=== PATIENT | female | born 2000 | race Caucasian/White ===

== ENCOUNTER 2023-09-26 15:42 | Outpatient (CLI) | payer OTHER, SELFPAY ==
[2023-09-26 16:27] LABS: Beta HCG Quantitative < 2.39 mIU/ML
== END 2023-09-26 15:43 | disposition home or self-care (01) ==
LOC: ANHLAB 15:46
PROVIDERS: Visit Provider Obstetrics & Gynecology
DX: N91.2 Amenorrhea, unspecified (principal)
CPT/HCPCS: 36415; 84702

== ENCOUNTER 2024-12-22 15:41 | Emergency (ER) | payer OTHER, SELFPAY ==
[2024-12-22 15:52] VITALS: BP 110/61; PULSE 63; RESP 16; TEMP 37.2; O2SAT 100
--- NOTE | 2024-12-22 16:05 | ED_ITS ---
HPI - General Adult General Chief complaint: Extremity Problem,Nontraumatic Stated complaint: LUMP ON NECK & R WRIST PAIN Time Seen by Provider: 12/22/24 15:51 Source: patient and RN notes reviewed Mode of arrival: ambulatory Limitations: no limitations History of Present Illness HPI narrative: Patient presents today complaining of a lymph node to the right neck that waxes and wanes in size intermittently over the past 4 months. Denies pain, fever, recent illness, or any additional systemic symptoms. She is also complaining of right wrist pain. She woke up with wrist pain this morning that increases somewhat with movement. Denies numbness or tingling. No OTC treatment prior to arrival. Related Data Home Medications ?Medication ?Instructions ?Recorded ?Confirmed ?Last Taken ?Type No Home Medications 09/27/23 12/22/24 Unknown History Allergies Allergy/AdvReac Type Severity Reaction Status Date / Time No Known Allergies Allergy Verified 12/22/24 15:52 [facility] Past Medical History Medical History Encounter for insertion of ParaGard IUD Surgical History Surgical History History of gynecological procedure (09/27/23) paragard iud insertion Family History Family History Grandparent Diabetes mellitus maternal grandmother Breast cancer maternal grandmother Hypertension maternal grandfather Malignant lymphoma paternal grandmother Social History Social History Smoking status: Never smoker Second hand tobacco smoke exposure: No Alcohol intake: never Substance use: current Substance use type: marijuana Other substance usage details: daily Do You Feel Safe in your Home?: Yes Lack of Transportation: No Lack of Food: Never True Current Housing: I Have Housing Concerned About Future Housing: No Difficulty Paying Gas/Electric Bills: No Difficulty Paying for Meds: No Currently Unemployed: No Education: High School Diploma/GED Difficulty w/ Childcare or Family Care: No Living arrangements: other Additional living arrangements comments: Male in gender Occupation/Education: occupation Additional occupation/education comments: [employer] Gender identity (if verbalized by the patient): Female Sexual Orientation (if Verbalized by the Patient): Bisexual Comments At time of signature, I have reviewed and agree with nursing past medical, surgical, social and family history unless otherwise noted. Please see nursing chart for further information. There is no relevant family history pertinent to the presenting complaint Exam Narrative: GENERAL: Well-appearing, well-nourished, and in no acute distress. HEAD: Normocephalic, atraumatic. EYES: EOMI. No redness or drainage. Conjunctivae normal. ENT: Mucous membranes pink and moist. Nares clear. No rhinorrhea. TMs normal bilaterally. Throat normal. Uvula midline. NECK: Normal AROM. Supple. Palpable, soft, right tonsillar lymph node. Tender to palpation. No erythema or edema noted. CHEST: No respiratory distress. Clear to auscultation. HEART: Regular rate and rhythm. No murmur appreciated. EXTREMITIES: Right wrist: Mild soft tissue tenderness to the distal radius. No edema, erythema, ecchymosis. Discomfort with passive radial deviation, but no pain with the remainder of range of motion. Distal sensation intact. Ca pillary refill normal. Radial pulse normal. SKIN: Warm, dry, no rash. Capillary refill normal. Normal skin turgor. NEURO: No focal deficits. Alert and oriented x3. Gait steady. PSYCH: Normal affect. No signs of depression or anxiety. Course Course Level of Care: Express Care Visit Vital Signs Vital signs: Vital Signs Temperature 98.9 F 12/22/24 15:52 Pulse Rate 63 12/22/24 15:52 Respiratory Rate 16 12/22/24 15:52 Blood Pressure 110/61 12/22/24 15:52 Pulse Oximetry 100 12/22/24 15:52 Temperature 98.9 F 12/22/24 15:52 Pulse Rate 63 12/22/24 15:52 Respiratory Rate 16 12/22/24 15:52 Blood Pressure 110/61 12/22/24 15:52 Pulse Oximetry 100 12/22/24 15:52 Reviewed Medical Decision Making MDM Narrative Medical decision making narrative: 24-year-old otherwise healthy female patient presents today intermittently palpable right tonsil lymph node x4 months. Denies recent illness or pain, or any other systemic symptoms. Upon exam, lymph node is slightly palpable and tender, but no gross edema, erythema noted. Recommend PCP follow-up for further evaluation. Patient has no other systemic symptoms that would warrant emergent transfer to the ER. Vital signs stable. Patient also complains of right wrist pain that was present upon waking this morning with no history of injury or trauma. Likely slept wrong on the wrist or strained it. Recommend NSAIDs with orthopedic follow-up in 7-10 days if symptoms persist. Patient agrees with plans. Differential Diagnosis Differential Diagnosis: Wrist strain, tendinitis,lymphadenopathy Vital Signs Vital Signs: Vital Signs Temperature 98.9 F 12/22/24 15:52 Pulse Rate 63 12/22/24 15:52 Respiratory Rate 16 12/22/24 15:52 Blood Pressure 110/61 12/22/24 15:52 Pulse Oximetry 100 12/22/24 15:52 Temperature 98.9 F 12/22/24 15:52 Pulse Rate 63 12/22/24 15:52 Respiratory Rate 16 12/22/24 15:52 Blood Pressure 110/61 12/22/24 15:52 Pulse Oximetry 100 12/22/24 15:52 Critical Care Time Critical Care Time Critical Care Time: No Discharge Plan Discharge Clinical Impression: Palpable lymph node, Acute pain of right wrist Patient Disposition: Home Condition: Stable Instructions: Wrist Sprain (ED) Additional Instructions: Please follow-up with primary care for further evaluation of your lymph node. The [facility] physician liaison number is [phone]. Call and they can help you find a PCP that is taking new patients. Apply ice and taking anti-inflammatories such as Aleve or ibuprofen for your wrist pain. Follow-up with orthopedics in 1 week if symptoms persist. Patient Language: Citizen Of [place] Prescriptions: No Action No Home Medications Follow-up/Referrals: PHYSICIAN,SUGAR HOUSE SUPERVISOR [Primary Care Provider] - Dom Kwok MD [Physician] - Time of Disposition: 16:04
== END 2024-12-22 16:09 | disposition home or self-care (01) ==
PROVIDERS: Emergency Provider Nurse Practitioner
DX: R59.0 Localized enlarged lymph nodes (principal); M25.531 Pain in right wrist
CPT/HCPCS: 99212; G0463

== ENCOUNTER 2025-02-22 07:57 | Emergency (ER) | payer OTHER, SELFPAY ==
--- NOTE | ~2025-02-22 | CT_ITS ---
EXAMINATION: CT soft tissue neck w con COMPARISON: None HISTORY: subjective lump/mass inferior ear/upper neck TECHNIQUE: Axial images were obtained with IV contrast. Sagittal, coronal reconstruction images were obtained from the axial views. Omnipaque 370, [address] scan performed using dose optimization techniques including the following automated exposure control; adjustment of mA and/or kV; use of iterative reconstruction technique. Automatic exposure control was used to reduce radiation dose. Permanent radiation dose record is archived to PACS. FINDINGS: . Visualized brain parenchyma is unremarkable. Optic globes unremarkable. No thickening of the prevertebral space or asymmetry of the airway. No asymmetry of the base of the tongue on the aryepiglottic folds. No asymmetry of the vocal cords. No thyroid nodules. No lymphadenopathy anterior superior mediastinum. Esophagus unremarkable. Parapharyngeal spaces and tonsillar tissue unremarkable. Submandibular glands and parotid glands unremarkable. No jugulodigastric or posterior cervical lymphadenopathy. No supraclavicular lymphadenopathy. Lung apices are unremarkable. No sclerotic or lytic lesions. No significant sinusitis. The soft tissues appear unremarkable. IMPRESSION: 1. There is no CT correlate to the palpable finding. If symptoms persist outpatient contrast-enhanced MRI recommended Reviewed, dictated and finalized at location A. IMPRESSION: 1. There is no CT correlate to the palpable finding. If symptoms persist outpat ient contrast-enhanced MRI recommended
[2025-02-22 08:02] VITALS: BP 116/62; PULSE 65; RESP 18; TEMP 36.7; O2SAT 100
[2025-02-22 08:09] VITALS: O2SAT 100
[2025-02-22 08:11] VITALS: BP 115/71; PULSE 61; RESP 14; TEMP 36.7; O2SAT 100
--- NOTE | 2025-02-22 10:12 | ED_ITS ---
HPI - URI/Sore Throat General Chief Complaint: Upper Respiratory Infection Stated Complaint: lump side of neck Time Seen by Provider: 02/22/25 10:07 Source: patient Mode of arrival: ambulatory Limitations: no limitations History of Present Illness HPI Narrative: Patient presents with report of a lump on the side of her neck which she states has been present for approximately a year but she feels like it is increasing in size over the past 1-4 months. She denies any ear pain. She reports allergies year round when asked about itchy watery eyes. For the past 2 days she has had upper respiratory infection symptoms such as a cough and rhinorrhea. She is not on medications for allergies. She denies any sore throat. She reports mild difficulty swallowing but no pain with swallowing. She denies this area feeling itchy. She has not taken any medications at home for this. Patient denies having a primary care physician. She states she had an appointment to see a doctor on Monday but she did not go as she missed this appointment. She states it would take more than a month to get in to be seen by a new primary care physician and so presents today. No previous workup for this. Has not seen ENT. Related Data Allergies Allergy/AdvReac Type Severity Reaction Status Date / Time No Known Allergies Allergy Verified 02/22/25 08:02 [facility] Past Medical History Medical History Encounter for insertion of ParaGard IUD Surgical History Surgical History History of gynecological procedure (09/27/23) paragard iud insertion Family History Family History Grandparent Diabetes mellitus maternal grandmother Breast cancer maternal grandmother Hypertension maternal grandfather Malignant lymphoma paternal grandmother Social History Social History Smoking status: Never smoker Second hand tobacco smoke exposure: No Alcohol intake: never Substance use: current Substance use type: marijuana Other substance usage details: daily Do You Feel Safe in your Home?: Yes Lack of Transportation: No Lack of Food: Never True Current Housing: I Have Housing Concerned About Future Housing: No Difficulty Paying Gas/Electric Bills: No Difficulty Paying for Meds: No Currently Unemployed: No Education: High School Diploma/GED Difficulty w/ Childcare or Family Care: No Living arrangements: other Additional living arrangements comments: Male in gender Occupation/Education: occupation Additional occupation/education comments: [employer] Gender identity (if verbalized by the patient): Female Sexual Orientation (if Verbalized by the Patient): Bisexual Exam 2 Narrative: GENERAL: Well-appearing, well-nourished, and in no acute distress. HEAD: Normocephalic, atraumatic. EYES: Non injected, non icteric ENT: Nares clear, no rhinorrhea or epistaxis. Gross auditory acuity intact. No tenderness to palpation/manipulation of pinna. TM easily visualized without bulging/effusion. No vesicles. No perforation of the TM. No bulging of the ear. No tenderness to palpation at the mastoid. NECK: Supple. No meningismus. No marked adenopathy (occipital or cervical). No appreciable mass/lesion/lump in the area just inferior to base of R ear/proximal neck where patient points which is otherwise posterior/inferior to TMJ CHEST: Speaking in full sentences. No respiratory distress. HEART: Regular rate and rhythm. . ABDOMEN: Soft, nondistended. EXTREMITIES: Normal range of motion. No lower extremity edema. SKIN: Warm, dry, no rash. No overlying erythema/lesions. NEURO: No focal deficits. Alert and oriented. Answering questions. Following commands. Normal speech without aphasia or dysarthria. PSYCH: Normal mood and affect. Course Vital Signs Vital signs: Vital Signs Temperature 98.1 F 02/22/25 08:02 Pulse Rate 65 02/22/25 08:02 Respiratory Rate 18 02/22/25 08:02 Blood Pressure 116/62 02/22/25 08:02 Pulse Oximetry 100 02/22/25 08:02 Temperature 98.3 F 02/22/25 12:22 Pulse Rate 72 02/22/25 12:22 Respiratory Rate 18 02/22/25 12:22 Blood Pressure 127/73 02/22/25 12:22 Pulse Oximetry 98 02/22/25 12:22 Oxygen Delivery Room Air 02/22/25 08:09 MDM - URI/Sore Throat MDM Narrative Medical decision making narrative: Patient presents with report of a lump that she feels on the side of her neck just under/at the base of the ear. Has been going on for 1 year, subjectively worse for the past 1-4 months. In the emergency department they are afebrile with vital signs within normal limits. No palpable mass on my physical exam. Viral swab negative. CBC unremarkable. BMP normal. Normal ESR and CRP. test negative. CT imaging negative. Discharged with Rx for OTC anagesic medication, 3 day course of Afrin for nasal congestion, and supply of allergy medication. Advised follow up with PCP. Otherwise stable for DC. Differential Diagnosis Differential diagnosis: Likely upper respiratory infection, otitis media, viral infection and other (mastoiditis; allergies; Eustachian tube dysfunction/inflammation; lymphadenopathy) Lab Data 02/22/25 10:39 02/22/25 10:39 Labs: Lab Results 02/22/25 02/22/25 Range/Units 09:13 10:39 WBC 8.0 (4.5-10.0) K/mm3 RBC 4.97 (4.2-5.4) M/mm3 Hgb 14.4 (12.0-15.0) g/dL Hct 43.9 (37.0-47.0) % MCV 88.3 (80-100) fl MCH 29.0 (26-34) pg MCHC 32.8 (32-36) g/dl RDW 12.2 (11.5-14.5) % Plt Count 282 (150-375) k/mm3 MPV 9.9 (7.4-10.4) fl Immature Gran % (Auto) 0.2 (0-0.5) % Neut % (Auto) 59.1 (45.5-73.1) % Lymph % (Auto) 31.6 (18.3-44.2) % Garden % (Auto) 6.5 (2.6-8.5) % Eos % (Auto) 2.2 (0-4.4) % Baso % (Auto) 0.4 (0.2-1.2) % Lymph # (Auto) 2.54 (0.9-3.2) K/mm3 Garden # (Auto) 0.5 (0.1-0.6) K/mm3 Eos # (Auto) 0.2 (0-0.3) K/mm3 Baso # (Auto) 0.0 (0.0-0.1) K/mm3 Abs Immat Gran (auto) 0.02 (0.00-0.031) K/mm3 Absolute Neuts (auto) 4.8 (1.3-6.7) K/mm3 Absolute Nucleated RBC 0.000 (0.0-0.012) K/mm3 Nucleated RBC % 0.0 (0.0-0.2) % ESR 1 (0-20) mm/hr Sodium 139 (137-145) mmol/L Potassium 4.0 (3.4-5.0) mmol/L Chloride 104 (98-107) mmol/L Carbon Dioxide 27 (22-30) mmol/L Anion Gap 8 (4-12) mmol/L BUN 13 (7-17) mg/dL Creatinine 0.73 (0.7-1.0) mg/dL Estim Creat Clear Calc 86 ml/min Estimated GFR > 60 (59 - ) Glucose 90 (65-110) mg/dL Calcium 9.5 (8.4-10.2) mg/dL C-Reactive Protein < 0.5 (<1.0) mg/dL Serum HCG, Qual Negative POC Urine HCG, Qual Negative (Negative) Influenza A (RT-PCR) Negative (Negative) Influenza B (RT-PCR) Negative (Negative) RSV (RT-PCR) Negative (Negative) SARS-CoV-2 RNA (RT-PCR) Negative (Negative) Imaging Data Radiologist's impression: Impressions Soft Tissue Neck CT 02/22/25 11:30 IMPRESSION: 1. There is no CT correlate to the palpable finding. If symptoms persist outpatient contrast-enhanced MRI recommended Discharge Plan Discharge Clinical Impression: Lump in neck, Allergies, Cough, Rhinorrhea Patient Disposition: Home Condition: Stable Instructions: Antibiotic Form, Allergies (ED), Acute Cough (ED) Additional Instructions: Because you do not have a primary care physician, the name of a doctor is listed below. Your lab work was normal and your CT scan did not identify anything concernin and you have a reassuring physical exam. If symptoms persist outpatient contrast-enhanced MRI recommended. Because you have allergies, recommend taking allergy medicatoin as sometimes the Eustachian tube can become inflamed. Acetaminophen/Tylenol (maximum 3000 mg per day) is safe to take with NSAIDs (ibuprofen/Motrin) for pain relief. Patient Language: Ecuadorean Prescriptions: New Zyrtec 10 mg capsule 10 mg PO DAILY PRN (Reason: allergy symptoms) Qty: 30 0RF Afrin (oxymetazoline) 0.05 % mist 2 spray intranasal Q12H PRN (Reason: nasal congestion) 3 Days Qty: 15 0RF acetaminophen 500 mg capsule 500 mg PO Q6H PRN (Reason: pain) Qty: 30 0RF ibuprofen 200 mg tablet 600 mg PO Q8H PRN (Reason: fever or pain) Qty: 30 0RF Follow-up/Referrals: Harjeet Ramos DO [Physician, Family Practice] Rika Bell DO [Physician, Family Practice] Stand Alone Forms: Work/School Release IP Time of Disposition: 12:10
[2025-02-22 10:13] LABS: Influenza A QL RT-PCR Negative (Negative); Influenza B QL RT-PCR Negative (Negative); RSV RNA, RT-PCR Negative (Negative); SARS-CoV-2 RNA PCR Negative (Negative)
--- OUTSIDE RECORDS SUMMARY | 2025-02-22 10:16 | XMS_ITS | Encounter Summary ---
Author Organization [facility] Healthcare Address [address] [place] [address] Care Team Providers Care Real Estate Investor Name Role Phone Pantera Norris MD Unavailable [phone] Referring, Unknown Unavailable Unavailabl Tomas Mesa MD Primary Care Provider [phone] Michael Mckenna MD Unavailable [phone] Reason for Visit * Reason Onset Date Comments Swollen Glands 01/21/2025 New Patient 01/21/2025 Encounter Details Date Type Department Care Team (Late st Contact Info) Description 01/21/2025 Nurse Triage [facility] Primary Care [address] [place] [address] Allison Hendrickson RN Social History Tobacco Use Types Packs/Day Years Used Date Smoking Tobacco: Never Smokeless Tobacco: Never Alcohol Use Standard Drinks/Week Comments Never 0 (1 standard drink = 0.6 oz pur e alcohol) AUDIT-C Answer Date Recorded Q1: How often do you have a drink containing alc ohol? Never 10/15/2021 Average Number of Drinks Not on file 022 Q3: How often do you have si x or more drinks on one occasion? 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 Radhames transferred to practice. Does message need to be routed? No * Telephone Encounter - Calos Perez - 01/22/2025 9:35 AM CDT Called patient, is waiting for a call from another office for a sooner appointment. * Telephone Encounter - Maine Rodarte MA - 01/21/2025 4:20 PM CDT Please see message patient is needing an apt. * Telephone Encounter - Allison Hendrickson RN - 01/21/2025 4:08 PM CDT Reason for Conversation Swollen Glands and New Patient Background Pt reports swollen lymph nodes x 6 months getting larger x 4 months. Denies any additional symptoms. Previous patient of Dr Garcia. Pt NATE was 10/15/2021. Pt advised that she is no longer a patient and will need to reestablish care as a new patient. Pt states that she would like to reestablish with any provider that is accepting new patients at this location. She wants to see whoever has the first available appointment. 1st available new patient appointment [facility] resident associate can see is 01/27/2025 at 0900 with MD Burton. Warning occurs when trying to schedule new patient appointment on 01/27/2025 and [facility] resident associate unable to schedule. Home care provided and pt advised to go to local UC/ED with new or wo rsening of symptoms. Encounter routed to the clinical pool. Please advise pt of appointment availability in office on 01/27/2025 with new provider. Disposition See PCP Within 2 Weeks Reason for Disposition Large node present > 2 weeks Protocols Used Lymph Nodes - [id number] * Telephone Encounter - Allison Hendrickson RN - 01/21/2025 3:44 PM CDT Regarding: Swollen lymp node right below ear lobe and jaw ----- Message from [employer] sent at 01/21/2025 3:42 PM CDT ----- Symptom Based Call Chief Complaint(s): Swollen lymp node right below ear lobe and jaw Duration: 6 months and has enlarged over past four months What type of symptom(s) is the patient experiencing? Non-Emergent. Is this a new or reoccurring symptom(s)? New What have you tried to help your symptom(s)? Warm beverages Why was appointment not scheduled? Appointment availability did not meet the patient's need. Additional Comments: There is no pain. Patient has family history of thyroid cancer. Next availableappointment is 02/19/25 at the practice. Does message need to be routed? Yes-Action Needed documented in this encounter Plan of Treatment Not on file documented as of this encounter Visit Diagnoses Not on filedocumented in this encounter Care Teams Real Estate Investor Relationship Specialty Start Date End Date Tomas Garcia MD PCP - General Family Practice 10/15/21 01/21/25 Pantera Norris MD [address] [place] [id number] 11/28/20 Referring, Unknown, Pediatrics 09/05/18 Michael Mckenna MD [address] [place] [address] Referring Physician Obstetrics and Gynecology 10/15/21 documented as of this encounter
--- OUTSIDE RECORDS SUMMARY | 2025-02-22 10:16 | XMS_ITS | Clinical Summary ---
Author Organization [facility] [address] [facility] Address [address] [place] [address] Care Team Providers Care Terrazzo Finisher Name Role Phone Pantera Norris MD Unavailable [phone] Referring, Unknown Unavailable Unavailabl Michael Moreno MD Unavailable [phone] Allergies No known active allergies Medications escitalopram (LEXAPRO) 10 mg tablet Take 1 tablet (10 mg total) by mouth daily 30 tablet 5 10/15/2021 Active ARIPiprazole (ABILIFY) 5 mg tablet TAKE 1 TABLET(5 MG) BY MOUTH DAILY 14 tablet 02/28/2022 Active Active Problems Problem Noted Date Diagnosed Date 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 Start on Lexapro. Added aripiprazole because may be bipolar Anxiety 10/15/2021 Assessment & Plan (10/15/2021 11:01 AM CDT): Worsening of chronic anxiety Poor concentration 10/15/2021 Assessment & Plan (10/15/2021 11:19 AM CDT): This does not sound like ADHD. She did well in middle school. Problems in high school but this was likely related to family issues. No problems function i at work k Low body weight due to inadequate caloric intake 10/15/2021 Assessment & Plan (10/15/2021 11:02 AM CDT): BMI Follow-up includes: nutrition counseling and exercise counseling. Resolved Problems Problem Noted Date Diagnosed Date Resolved Date Well adult exam 10/14/2021 10/15/2021 Encounters Date Type Department Care Team Description 01/21/2025 Nurse Triage [facility] Primary Care [address] [place] [address] Allison Hendrickson RN from Last 3 Months Medical History Medical History Date Comments Anxiety Depression Family History Medical History Relation Name Comments No Known Problems Brother No Known Problems Father Hypertension Mother Diabetes Paternal Grandmother Thyroid cancer Paternal Grandmother Relation Name Status Comments Brother Alive Father Alive Mother Alive Paternal Grandmother Alive Social History Tobacco Use Types Packs/Day Years [...] on file Legal 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 Gender Identity Female 11/30/2020 8:23 AM CDT Sexual Orientation Not on file Obstetrics History Last Filed Vital Signs Vital Sign Reading Time Taken Comments Blood Pressure 110/68 10/15/2021 10:39 AM CDT Pulse 86 10/15/2021 10:39 AM CDT Temperature 35.8 C (96.4 F) 10/15/2021 10:39 AM CDT Respiratory Rate 16 10/15/2021 10:39 AM CDT Oxygen Saturation 100% 10/15/2021 10:39 AM CDT Inhaled Oxygen Concentration - - Weight 56.8 kg (125 lb 4.8 oz) 10/15/2021 10:39 AM CDT Height 162.6 cm (5' 4) 10/15/2021 10:39 AM CDT Body Mass Index 21.51 10/15/2021 10:39 AM CDT Plan of Treatment Not on file Insurance CLAIMS Care Teams Terrazzo Finisher Relationship Specialty Start Date End Date Pantera Norris MD [address] [place] [address] 11/28/20 Referring, Unknown, Pediatrics 09/05/18 Michael Mckenna MD [address] [place] [address] Referring Physician Obstetrics and Gynecology 10/15/21
--- OUTSIDE RECORDS SUMMARY | 2025-02-22 10:16 | XMS_ITS | Clinical Summary ---
Author Organization [facility] Care Team Providers Care Disc Pad Grinder Name Role Phone Unavailable Primary Care Provider Unavailabl e Social History Tobacco Use Types Packs/Day Years Used Date Smoking Tobacco: Never Assessed Comments Unknown Sex and Gender Information Value Date Recorded Sex Assigned at Not on file Legal Sex Female 10:50 AM CDT Gender Identity Not on file Sexual Orientation Not on file Plan of Treatment Health Maintenance Due Date Last Done Comments Hepatitis C Virus (HCV) Screening 2002 TdaP Immunization 2002 Human Papillomavirus (HPV) Immunization (1 - 3-dose series) 2017 Meningococcal B Immunization (1 of 2 - Standard) 2018 Hepatitis B Immunization (1 of 3 - 19+ 3-dose series) 2021 SARS-COV-2 Immunization ( - 2023- season) 2024 Influenza Immunization (#1) 2025 Respiratory Syncytial Virus (RSV) Immunization (Adult) (1 - 1-dose 75+ series) 2077 Meningococcal Immunization (ACWY) Aged Out No longer eligible based on patient's age to complete this topic Pneumococcal Immunization Combined Aged Out No longer eligible based on patient's age to complete this topic Rotavirus Immunization Aged Out No lo nger eligible based on patient's age to complete this topic
--- OUTSIDE RECORDS SUMMARY | 2025-02-22 10:16 | XMS_ITS | Clinical Summary ---
Author Organization [facility] Address [address] [place] [id number] Care Team Providers Care Consumer Loan Manager Name Role Phone Unavailable Primary Care Provider Unavailabl e Social History Tobacco Use Types Packs/Day Years Used Date Smoking Tobacco: Never Assessed Comments Unknown Sex and Gender Information Value Date Recorded Sex Assigned at Not on file Legal Sex Female 7:38 PM CDT Gender Identity Not on file Sexual Orientation Not on file Plan of Treatment Health Maintenance Due Date Last Done Comments Cervical Cancer Screening Pa p Smear (Age 21 to 29) Every 3 Years 2002 Cervical Cancer Screening 2002 Annual Physical 2005 HPV Vaccines (1 - 3-dose series) 2017 Meningococcal B Vaccine (1 o f 2 - Standard) 2018 Hepatitis C 2020 DTaP, Tdap and Td Vaccines ( 1 - Tdap) 2021 Hepatitis B Vaccines (1 of 3 - 19+ 3-dose series) 2021 COVID-19 Vaccine (1 - 2023-2 5 season) 2025 Meningococcal Vaccine Aged Out No vinh hazel eligible based on patient's age to complete this topic Pneumococcal Vaccine: Pediat rics (0 to 5 Years) and At-Risk Patients (6 to 49 Years) Aged Out No longer eligible b ased on patient's age to complete this topic RSV Immunizations Under 20 Months Aged Out No longer eligible based on patient's age to complete this topic
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
[2025-02-22 10:41] LABS: BEDSIDEPREGUCG Negative (Negative)
[2025-02-22 10:43] LABS: Hematocrit 43.9 % (37.0-47.0); Hemoglobin 14.4 g/dL (12.0-15.0); Immature Granulocyte Percent A 0.2 % (0-0.5); Lymphocytes Absolute Auto 2.54 K/mm3 (0.9-3.2); Mean Corpuscular HGB Conc 32.8 g/dl (32-36); Mean Corpuscular Hemoglobin 29.0 pg (26-34); Mean Corpuscular Volume 88.3 fl (80-100); Nucleated Red Blood Cells Absolute Auto 0.000 K/mm3 (0.0-0.012); Nucleated Red Blood Cells Perc 0.0 % (0.0-0.2); Platelet Count Result 282 k/mm3 (150-375); Red Blood Count 4.97 M/mm3 (4.2-5.4); White Blood Count 8.0 K/mm3 (4.5-10.0)
[2025-02-22 10:56] LABS: SPREG INTERNAL CONTROL Positive; Serum Qual hCG Negative
[2025-02-22 11:02] LABS: Anion Gap 8 mmol/L (4-12); Blood Urea Nitrogen 13 mg/dL (7-17); CRP < 0.5 mg/dL (<1.0); Calcium 9.5 mg/dL (8.4-10.2); Carbon Dioxide 27 mmol/L (22-30); Chloride 104 mmol/L (98-107); Estimated CRCL calculation 86 ml/min; Estimated Glomerular Filt Rate > 60; Glucose 90 mg/dL (65-110); Potassium 4.0 mmol/L (3.4-5.0); Sodium 139 mmol/L (137-145)
[2025-02-22 12:22] VITALS: BP 127/73; PULSE 72; RESP 18; TEMP 36.8; O2SAT 98
== END 2025-02-22 12:23 | disposition home or self-care (01) ==
PROVIDERS: Emergency Provider Student in an Organized Health Care Education/Training Program
DX: T78.40XA Allergy, unspecified, initial encounter (principal); R05.9 Cough, unspecified; R22.1 Localized swelling, mass and lump, neck; J34.89 Other specified disorders of nose and nasal sinuses; Z20.822 Contact with and (suspected) exposure to COVID-19
CPT/HCPCS: 36415; 70491; 80048; 81025; 84703; 85025; 85652; 86140; 87637; 99284; Q9967